=== PATIENT | female | born 1955 | race Two or more races ===

== ENCOUNTER 2016-11-30 16:31 | Emergency (ER) | payer SELFPAY ==
[~2016-11-30] VITALS: Ht 160 cm; Wt 70.8 kg
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
[2016-11-30] MEDS ORDERED: FLEXERIL10 MG PO (17:47)
[2016-11-30] MEDS ORDERED: IBUPROFEN800 MG PO (17:47)
[2016-11-30 17:52] VITALS: BP 145/93
--- NOTE | 2016-11-30 19:13 | RADIOLOGY REPORT PS360 ---
KNEE-3 VIEWS-RT HISTORY: pain ORDERING PHYSICIAN: MATTHIAS BURCH APRN PATIENT AGE: 61 years COMPARISON: None FINDINGS: No fracture or dislocation. No lytic or blastic change. Normal mineralization. There are minimal osteoarthritic changes of the medial compartment and patellofemoral joint. No other significant findings IMPRESSION: No acute fracture. Minimal osteoarthritic change
--- NOTE | 2016-11-30 19:14 | RADIOLOGY REPORT PS360 ---
[id number] VIEWS HISTORY: pain ORDERING PHYSICIAN: MATTHIAS BURCH APRN PATIENT AGE: 61 years COMPARISON: None FINDINGS: No fracture or dislocation. No lytic or blastic change. There is normal mineralization. There are minimal osteoarthritic changes of the acromioclavicular joint. No significant subacromial stenosis. IMPRESSION: Minimal osteoarthritic change of the acromioclavicular joint otherwise negative
== END 2016-11-30 17:55 | disposition home or self-care (01) ==
LOC: UTC 16:31 → ER 16:31 → UTC 16:53
DX: M62.838 Other muscle spasm (principal); V03.00XA Pedestrian on foot injured in collision with car, pick-up truck or van in nontraffic accident, initial encounter; Y92.9 Unspecified place or not applicable